=== PATIENT | female | born 1990 | race Caucasian/White ===

== ENCOUNTER 2020-10-25 21:09 | Emergency (ER) | payer OTHER ==
[2020-10-25 21:16] VITALS: BP 115/68; PULSE 110; TEMP 98.8; BMI 38.3
[2020-10-25 22:20] LABS: URINE APPEARANCE Clear; URINE BILIRUBIN Negative (NEGATIVE); URINE COLOR Yellow; URINE GLUCOSE (UA) Negative (NEGATIVE); URINE KETONE Trace (NEGATIVE); URINE LEUK ESTERASE 1+ (NEGATIVE); URINE NITRITE Negative (NEGATIVE); URINE PROTEIN 1+ (NEGATIVE); URINE UROBILINOGEN 0.2 mg/dL (0.2-1.0)
[2020-10-25 22:40] LABS: HCG,QUALITATIVE URINE Negative
[2020-10-25 23:10] LABS: EPI CELLS 51.5 /uL (0-25.1); HYALINE CASTS 7.62 /uL (0-3.1); URINE BACTERIA 1664.5 /uL (0-1359); URINE RBC 2068.7 /uL (0-23.9); URINE WBC 442.7 /uL (0-25.8)
[2020-10-25 23:16] LABS: YEAST MANY (NEGATIVE)
== END 2020-10-25 23:06 | disposition home or self-care (01) ==
LOC: JER 21:09
DX: U07.1 COVID-19 (principal); M54.5 Low back pain
CPT/HCPCS: 81003; 84703; 87086; 99283-25

== ENCOUNTER 2020-10-27 01:45 | Emergency (ER) | payer OTHER ==
[2020-10-27 01:56] VITALS: BMI 38.5
[2020-10-27] MEDS ORDERED: FLUCONAZOLE 50 MG TABLET PO ONE (02:46)
[2020-10-27] MEDS ORDERED: FLUCONAZOLE 150 MG TABLET PO ONE (02:47)
[2020-10-27] MEDS ORDERED: LIDOCAINE 5% TOPICAL PATCH TP ONE (03:00)
[2020-10-27] MEDS ORDERED: SODIUM CHLORIDE 0.9% 500 ML INFUS.BAG IV ONE ×2 (03:00→06:32)
[2020-10-27] MEDS ORDERED: ACETAMINOPHEN 1000 MG/100 ML VIAL (NON FORMULARY) IVPB ONE (03:01)
[2020-10-27] MEDS ORDERED: ACETAMINOPHEN INJECTION 100 ML IVPB ONE (03:10)
[2020-10-27] MEDS ORDERED: LIDOCAINE 5% TOPICAL PATCH ONE (03:10)
[2020-10-27 03:33] LABS: BASO % 0.5 % (0-2.0); EOS % 0.1 % (0-4.5); HEMATOCRIT 38.4 % (32.4-45.2); HEMOGLOBIN 13.3 GM/dL (10.7-15.3); LYMPH % 25.2 % (8-40); MCH 32.9 pg (25.7-33.7); MCHC 34.7 g/dl (32.0-36.0); MEAN CELL VOLUME 94.7 fl (80-96); MEAN PLT VOLUME 8.4 fl (7.5-11.1); MONO % 5.5 % (3.8-10.2); NEUT % 68.7 % (42.8-82.8); PLATELET COUNT 195 10^3/uL (134-434); RBC 4.06 M/mm3 (3.60-5.2); RDW 12.9 % (11.6-15.6); WHITE BLOOD COUNT 6.8 K/mm3 (4.0-10.0)
[2020-10-27 03:54] LABS: ALBUMIN 3.9 g/dl (3.4-5.0); BLOOD UREA NITROGEN 6.9 mg/dL (7-18)
[2020-10-27 03:58] LABS: CREATININE 0.6 mg/dL (0.55-1.3)
[2020-10-27 03:59] LABS: BILIRUBIN,TOTAL 0.6 mg/dL (0.2-1); TOT PROT 7.6 g/dl (6.4-8.2)
[2020-10-27 04:29] LABS: EPI CELLS 12 /uL (0-25.1); HYALINE CASTS 3 /uL (0-3.1); URINE APPEARANCE CLOUDY; URINE BACTERIA 449 /uL (0-1359); URINE BILIRUBIN NEGATIVE (NEGATIVE); URINE COLOR YELLOW; URINE GLUCOSE (UA) NEGATIVE (NEGATIVE); URINE KETONE TRACE (NEGATIVE); URINE LEUK ESTERASE 1+ (NEGATIVE); URINE NITRITE NEGATIVE (NEGATIVE); URINE PROTEIN TRACE (NEGATIVE); URINE RBC 39 /uL (0-23.9); URINE WBC 134 /uL (0-25.8)
[2020-10-27] MEDS ORDERED: KETOROLAC TROMETHAMINE 15 MG/ML VIAL IVPUSH ONE (04:56)
[2020-10-27] MEDS ORDERED: KETOROLAC TROMETHAMINE 60 MG/2 ML VIAL ONE (04:58)
[2020-10-27 06:03] VITALS: TEMP 98.5
[2020-10-27] MEDS ORDERED: morphine CARPU-JECT 4 MG/1 ML DISP.SYRIN IVPUSH ONE (06:22)
[2020-10-27] MEDS ORDERED: morphine SULFATE 4 MG/ML VIAL ONE (06:26)
[2020-10-27] MEDS ORDERED: CEFTRIAXONE 1,000 MG in DEXTROSE 5%-WATER - 50 ML IVPB ONE (07:41)
[2020-10-27] MEDS ORDERED: CEFTRIAXONE 1 GM/50 ML BAG ONE (08:11)
[2020-10-27 10:22] VITALS: BP 102/53; PULSE 97
[2020-10-27] MEDS ORDERED: LIDOCAINE PATCH REMOVAL MC SCH (22:00)
== END 2020-10-27 10:49 | disposition home or self-care (01) ==
LOC: JER 01:45
PROC: 3E0333Z Introduction of Anti-inflammatory into Peripheral Vein, Percutaneous Approach (ICD-10-PCS; principal; 2020-10-27)
PROC: 3E03329 Introduction of Other Anti-infective into Peripheral Vein, Percutaneous Approach (ICD-10-PCS; 2020-10-27)
PROC: 3E0333Z Introduction of Anti-inflammatory into Peripheral Vein, Percutaneous Approach (ICD-10-PCS; 2020-10-27)
PROC: 3E033NZ Introduction of Analgesics, Hypnotics, Sedatives into Peripheral Vein, Percutaneous Approach (ICD-10-PCS; 2020-10-27)
DX: U07.1 COVID-19 (principal); M79.10 Myalgia, unspecified site; N10 Acute pyelonephritis
CPT/HCPCS: 36415; 71045-TC-FY; 76705-TC; 80053; 81003; 85025; 99285-25; J0131

== ENCOUNTER 2023-01-11 12:28 | Emergency (ER) | payer OTHER ==
[2023-01-11 12:37] VITALS: BMI 39.4
[2023-01-11] MEDS ORDERED: ACETAMINOPHEN 1000 MG/100 ML BAG IVPB ONE (13:12)
[2023-01-11] MEDS ORDERED: ONDANSETRON 4 MG/2 ML VIAL IVPUSH ONE (13:12)
[2023-01-11] MEDS ORDERED: SODIUM CHLORIDE 0.9% 500 ML INFUS.BAG IV ONE (13:12)
[2023-01-11] MEDS ORDERED: ACETAMINOPHEN INJECTION 100 ML IVPB ONE (13:19)
[2023-01-11] MEDS ORDERED: ONDANSETRON 4 MG/2 ML VIAL ONE (13:19)
[2023-01-11 13:40] LABS: BASO % 1.2 % (0-2.0); EOS % 0.8 % (0-4.5); HEMATOCRIT 43.2 % (32.4-45.2); HEMOGLOBIN 14.2 GM/dL (10.7-15.3); LYMPH % 24.2 % (8-40); MCH 31.7 pg (25.7-33.7); MCHC 32.9 g/dl (32.0-36.0); MEAN CELL VOLUME 96.3 fl (80-96); MEAN PLT VOLUME 8.2 fl (7.5-11.1); MONO % 3.5 % (3.8-10.2); NEUT % 70.3 % (42.8-82.8); PLATELET COUNT 338 10^3/uL (134-434); RBC 4.49 M/mm3 (3.60-5.2); RDW 12.7 % (11.6-15.6); WHITE BLOOD COUNT 8.2 K/mm3 (4.0-10.0)
[2023-01-11 13:54] LABS: EPI CELLS 34 /uL (0-25.1); HYALINE CASTS 0 /uL (0-3.1); URINE APPEARANCE CLEAR; URINE BACTERIA 422 /uL (0-1359); URINE BILIRUBIN NEGATIVE (NEGATIVE); URINE COLOR YELLOW; URINE GLUCOSE (UA) NEGATIVE (NEGATIVE); URINE KETONE NEGATIVE (NEGATIVE); URINE LEUK ESTERASE TRACE (NEGATIVE); URINE NITRITE NEGATIVE (NEGATIVE); URINE PROTEIN NEGATIVE (NEGATIVE); URINE RBC 33 /uL (0-23.9); URINE UROBILINOGEN 0.2 mg/dL (0.2-1.0); URINE WBC 18 /uL (0-25.8)
[2023-01-11 13:56] LABS: POTASSIUM 4.1 mmol/L (3.5-5.1)
[2023-01-11 13:58] LABS: BLOOD UREA NITROGEN 9.3 mg/dL (7-18); CALCIUM 9.3 mg/dL (8.5-10.1)
[2023-01-11 13:59] LABS: ALBUMIN 4.1 g/dl (3.4-5.0)
[2023-01-11 14:02] LABS: CREATININE 0.6 mg/dL (0.55-1.3)
[2023-01-11 14:03] LABS: BILIRUBIN,TOTAL 1.3 mg/dL (0.2-1)
[2023-01-11] MEDS ORDERED: KETOROLAC TROMETHAMINE 30 MG/1 ML VIAL IVPUSH ONE (14:34)
[2023-01-11 17:20] VITALS: BP 109/61; PULSE 73; RESP 18; TEMP 98.3
[2023-01-11] MEDS ORDERED: predniSONE 20 MG TABLET (UD) PO ONE (17:37)
[2023-01-11] MEDS ORDERED: predniSONE 20 MG TABLET (UD) ONE (18:01)
== END 2023-01-11 18:07 | disposition home or self-care (01) ==
LOC: JER 12:28
PROC: 3E033NZ Introduction of Analgesics, Hypnotics, Sedatives into Peripheral Vein, Percutaneous Approach (ICD-10-PCS; principal; 2023-01-11)
PROC: 3E033GC Introduction of Other Therapeutic Substance into Peripheral Vein, Percutaneous Approach (ICD-10-PCS; 2023-01-11)
PROC: 3E033GC Introduction of Other Therapeutic Substance into Peripheral Vein, Percutaneous Approach (ICD-10-PCS; 2023-01-11)
DX: R11.2 Nausea with vomiting, unspecified (principal); R22.0 Localized swelling, mass and lump, head; G44.86 Cervicogenic headache; K76.0 Fatty (change of) liver, not elsewhere classified
CPT/HCPCS: 0241U-QW; 36415; 70491-TC; 76705-TC; 80053; 81003; 83690; 84703; 85025; 87086; 96374; 96375; 99284-25; Q9967

== ENCOUNTER 2023-09-24 16:14 | Emergency (ER) | payer OTHER ==
[2023-09-24 16:21] VITALS: BP 111/58; PULSE 73; RESP 20; TEMP 98.6; BMI 38.5
[2023-09-24] MEDS ORDERED: IBUPROFEN 600 MG TABLET (FP) PO ONE (16:44)
[2023-09-24] MEDS ORDERED: SULFAMETHOXAZOLE/TRIMETHOPRIM 800MG/160MG D.S. TABLET ONE (16:44)
[2023-09-24] MEDS: IBUPROFEN 600 MG TABLET (FP) PO ONE (16:46)
[2023-09-24] MEDS: SULFAMETHOXAZOLE/TRIMETHOPRIM 800MG/160MG D.S. TABLET PO ONE (16:46)
== END 2023-09-24 16:59 | disposition home or self-care (01) ==
LOC: JERFT 16:14
DX: L03.032 Cellulitis of left toe (principal); M79.675 Pain in left toe(s)
CPT/HCPCS: 99283-25